=== PATIENT | male | born 1950 | race Caucasian/White ===

== ENCOUNTER 2023-01-25 04:27 | Emergency (ER) | payer MEDICARE, OTHER ==
[~2023-01-25] VITALS: Ht 154.9 cm; Wt 72.6 kg
[~2023-01-25 04:27] MED LIST: ISON300T19 PO; PYRI50TA14 PO
--- NOTE | 2023-01-25 07:00 | NUR ---
Patient left after triage.
== END 2023-01-25 07:26 | disposition left against medical advice (07) ==
LOC: ER 04:27
DX: Z53.21 Procedure and treatment not carried out due to patient leaving prior to being seen by health care provider (principal)
CPT/HCPCS: A4663

== ENCOUNTER 2023-01-25 10:21 | Emergency (ER) | payer MEDICARE, OTHER ==
[~2023-01-25] VITALS: Ht 154.9 cm; Wt 72.6 kg
--- NOTE | 2023-01-25 10:42 | NUR ---
Pt seen by MD for bedside eval. Safety measures in place. Will continue to monitor.
[2023-01-25] MEDS ORDERED: ACETAMINOPHEN 325 MG TABLET PO ONE (10:45)
[2023-01-25] MEDS ORDERED: ACETAMINOPHEN 325 MG TABLET ONE (10:48)
[2023-01-25] MEDS ORDERED: KETOROLAC TROMETHAMINE 15 MG INJ IVP ONE (12:30)
[2023-01-25] MEDS ORDERED: KETOROLAC TROMETHAMINE 15 MG INJ ONE (12:36)
[2023-01-25 13:09] LABS: HEMATOCRIT 36.1 % (36.7-47.1); MEAN CORPUSCULAR HEMOGLOBIN 30.3 uug (23.8-33.4); MEAN CORPUSCULAR VOLUME 89.5 fL (73.0-96.2); PLATELET COUNT (AUTO) 217 K/uL (152-348)
[2023-01-25 13:17] LABS: CREATININE 0.8 mg/dL (0.6-1.3); POTASSIUM 4.5 mmol/L (3.5-5.1)
[2023-01-25 13:22] LABS: BILIRUBIN,TOTAL 0.2 mg/dL (0.2-1.0); TOTAL PROTEIN, SERUM 6.4 g/dL (6.4-8.2)
[2023-01-25] MEDS ORDERED: COLCHICINE 0.6 MG TABLET PO ONE (14:15)
[2023-01-25] MEDS ORDERED: COLCHICINE 0.6 MG TABLET ONE (14:30)
--- NOTE | 2023-01-25 15:02 | NUR ---
Patient discharged to home in stable condition. Written and verbal after care instructions given. Patient verbalizes understanding of instructions. Pt forgot to take pt copy of crutches. Stressed follow up or return to ER for worsening s/s.
[2023-01-25 15:07] VITALS: BP 119/60; TEMP 98.7; O2SAT 97
== END 2023-01-25 15:07 | disposition home or self-care (01) ==
LOC: ER 10:21
DX: M79.674 Pain in right toe(s) (principal); Z79.899 Other long term (current) drug therapy
CPT/HCPCS: 99284; 96374; 80053; 84550; 85025; 36415; 73630; J1885; A4663